=== PATIENT | female | born 1965 | race Two or more races ===

== ENCOUNTER 2024-06-02 20:51 | Emergency (ER) | payer OTHER ==
[~2024-06-02] VITALS: Ht 165.1 cm; Wt 72.7 kg
[2024-06-02 22:00] VITALS: BP 132/85; PULSE 108; RESP 16; O2SAT 98
== END 2024-06-02 22:57 | disposition left against medical advice (07) ==
LOC: EDBD 20:51 → ER 20:51
DX: M79.604 Pain in right leg (principal); Z53.21 Procedure and treatment not carried out due to patient leaving prior to being seen by health care provider